=== PATIENT | male | born 1965 | race Caucasian/White ===

== ENCOUNTER → 2020-03-26 | Outpatient (CLI) | payer OTHER ==
--- NOTE | 2020-03-26 13:37 | RADIOLOGY REPORT (SQ) ---
EXAM DESCRIPTION: CT ABD/PELVIS NO ORAL OR IV IMAGES COMPLETED DATE/TIME: 03/26/2020 12:49 pm REASON FOR STUDY: (R31.21)ASYMPTOMATIC MICROSCOPIC HEMATURIA R31.21 ASYMPTOMATIC MICROSCOPIC HEMATU JUNAID COMPARISON: None. TECHNIQUE: CT scan of the abdomen and pelvis performed without intravenous or oral contrast. Images reviewed with lung, soft tissue, and bone windows. Reconstructed coronal and sagittal MPR images revi ewed. All images stored on PACS. All CT scanners at this facility use dose modulation, iterative reconstruction, and/or weight based d osing when appropriate to reduce radiation dose to as low as reasonably achievable (ALARA). [facility]: Dose Right [facility]: CareDose [facility]: Dose Right [facility]: Teradose 4D [facility]: [employer] RADIATION DOSE: CT Rad equipment meets quality standard of care and radiation dose reduction techniq ues were employed. CTDIvol: 14.8 mGy. DLP: 832 mGy-cm.mGy. LIMITATIONS: None. FINDINGS: LOWER CHEST: No significant findings. No nodules or infiltrates. NON-CONTRASTED LIVER, SPLEEN, ADRENALS: Evaluation limited by lack of IV contrast. No identified sign ificant masses. PANCREAS: No masses. No peripancreatic inflammatory changes. GALLBLADDER: No identified stones by CT criteria. No inflammatory changes to suggest cholecystitis. RIGHT KIDNEY AND URETER: No suspicious masses. Assessment limited by lack of IV contrast. No signif icant calcifications. No hydronephrosis or hydroureter. LEFT KIDNEY AND URETER: No suspicious masses. Assessment limited by lack of IV contrast. No signifi cant calcifications. No hydronephrosis or hydroureter. AORTA AND RETROPERITONEUM: There are some small shotty periaortic and mesenteric lymph nodes. Nonspe cific. BOWEL AND PERITONEAL CAVITY: No obvious masses or inflammatory changes. No free fluid. APPENDIX: Normal. PELVIS, BLADDER, AND ABDOMINAL WALL:Urinary bladder is not well filled but otherwise unremarkable. N o pelvic mass or fluid collection. Small uncomplicated inguinal hernias. BONES: No significant findings. OTHER: No other significant finding. IMPRESSION: No acute finding in the abdomen or pelvis. No urinary pathology is appreciated. There are some small shotty nonspecific periaortic and mesenteric lymph nodes. COMMENT: Quality ID # [id number]: Final reports with documentation of one or more dose reduction techniques (e.g., Automated exposure control, adjustment of the mA and/or kV according to patient size, use of iterative reconstruction technique) TECHNICAL DOCUMENTATION: JOB ID: [id number] 2010 [employer]- All Rights Reserved Reading location - IP/workstation name: [email or web address]
--- OUTSIDE RECORDS SUMMARY | 2020-03-27 15:28 | XMS REPORT ---
:1965 Author Organization [facility] [place] [address] [place] [address] Care Team Providers Name Role Phone Marlene Rosario Attending Clinician Unavailable Allergies, Adverse Reactions, Alerts This patient has no known allergies or adverse reactions. Medications This patient has no known medications. Problems This patient has no known problems. Procedures Procedure Date / Time Performed Performing Clinician Devic e OFFICE/OUTPATIENT VISIT EST 2020-03-03 10:00:00 OFFICE/OUTPATIENT VISIT EST 2019-07-17 10:00:00 Results Test Description Test Time Test Comments Text Results Atomic Results Result Comments Hemoglobin A1C\S\ 2020-03-03 10:23:00 Test Item Value Reference Range Comments HgbA1C, Fingerstick (test code = 4548-4) 10.9 % 4-5.6 URINALYSIS, [id number] 00:00:00 Test Item Value Reference Range Comments SQUAMOUS EPITHELIAL CELLS (test code = NONE SEEN /HPF < OR = 5 76921501) APPEARANCE (test code = 32038418) CLEAR CLEAR COLOR (test code = 99311596) YELLOW YELLOW GLUCOSE (test code = 67953756) 3+ NEGATIVE HYALINE CAST (test code = 12588243) NONE SEEN /LPF NONE SEEN BACTERIA (test code = 73843042) NONE SEEN /HPF NONE SEEN OCCULT BLOOD (test code = 66982477) NEGATIVE NEGATIVE LEUKOCYTE ESTERASE (test code = 87390218) NEGATIVE NEGATI VE KETONES (test code = 96010972) TRACE NEGATIVE SPECIFIC GRAVITY (test code = 98378897) 1.040 1.001-1. 035 NITRITE (test code = 83670793) NEGATIVE NEGATIVE WBC (test code = 01670855) NONE SEEN /HPF < OR = 5 BILIRUBIN (test code = 62163427) NEGATIVE NEGATIVE PH (test code = 22186089) 6.0 5.0-8.0 RBC (test code = 73060436) 0-2 /HPF < OR = 2 PROTEIN (test code = 89085-9) 1+ NEGATIVE Rapid Strep\S\2018-10-31 08:00:00 Test Item Value Reference Range Comments Rapid Strep (test code = RAPIDSTREP) Positive N/A Hemoglobin A1C\S\2018-10-31 08:00:00 Test Item Value Reference Range Comments HgbA1C, Fingerstick (test code = 4548-4) 10.6 % 4-5.6 Hemoglobin A1C\S\2018-05-25 15:00:00 Test Item Value Reference Range Comments HgbA1C, Fingerstick (test code = 4548-4) 10.9 % 4-5.6 Assessments Condition Name Status Diagnosis Date Treating Clinici an Asymptomatic microscopic hematuria Active Type 2 diabetes mellitus with hyperglycemia Active Other male erectile dysfunction Active Other abnormal glucose Active Other problems related to housing and Active economic circumstances Encounter for screening for lipoid disorders Active Other male erectile dysfunction Active Type 2 diabetes mellitus with hyperglycemia Active Encounters Start End Encounter Admission Attending Care Care Encounter Date/Time Date/Time Type Type Clinicians Facility Department ID 2020-03-03 2020-03-[address] [facility] [place] DB [id number] 10:00:00 10:00:00 [facility]???s [id number]-8 and [id number] Multispec[facility]ty [id number] Clini 2019-07-17 2019-07-[address] [facility] [place] 84 [id number] 10:00:00 10:00:00 Marlene Children [id number] s [id number] and [id number] [facility], Social History This patient has no known social history. Vital Signs This patient has no known vital signs.
== END ==
LOC: RAD 12:32
PROVIDERS: ATTEND Nurse Practitioner Family
DX: R31.21 Asymptomatic microscopic hematuria (principal); K40.90 Unilateral inguinal hernia, without obstruction or gangrene, not specified as recurrent
CPT/HCPCS: 74176

== ENCOUNTER → 2020-06-12 | Outpatient (CLI) | payer OTHER ==
--- NOTE | 2020-06-12 12:53 | RADIOLOGY REPORT (SQ) ---
EXAM DESCRIPTION: VENOUS UNILATERAL LOWER IMAGES COMPLETED DATE/TIME: 06/12/2020 12:34 pm REASON FOR STUDY: LLE SWELLING M25.472 EFFUSION, LEFT ANKLE COMPARISON: None. TECHNIQUE: Dynamic and static calderon scale and color images acquired of the left leg venous system. Se lected spectral images acquired with additional compression and augmentation maneuvers. The contralat eral common femoral vein and saphenofemoral junction were also imaged. Images stored on PACS. LIMITATIONS: None. FINDINGS: COMMON FEMORAL: Normal phasicity, compression and augmentation. No visualized echogenic ma terial on calderon scale. No defects on color images. FEMORAL: Normal compression and augmentation. No visualized echogenic material on calderon scale. No defe cts on color images. POPLITEAL: Normal compression, augmentation. No visualized echogenic material on calderon scale. No defec ts on color images. CALF VESSELS: Normal compression, augmentation. No visualized echogenic material on calderon scale. No de fects on color images. GSV and SSV: Normal compression, augmentation. No visualized echogenic material on calderon scale. No def ects on color images. ANY DEEP VENOUS INSUFFICIENCY: Not evaluated. ANY EVIDENCE OF POPLITEAL CYST: No. OTHER: No other significant finding. CONTRALATERAL COMMON FEMORAL VEIN AND SAPHENOFEMORAL JUNCTION: Normal phasicity, compression and augmentation. No visualized echogenic material on calderon scale. No de fects on color images. IMPRESSION: NO EVIDENCE DVT OR SVT IN THE LEFT LEG. TECHNICAL DOCUMENTATION: JOB ID: [id number] 2010 [employer]- All Rights Reserved Reading location - IP/workstation name: [email or web address]
--- NOTE | 2020-06-12 15:33 | RADIOLOGY REPORT (SQ) ---
EXAM DESCRIPTION: ANKLE LEFT COMPLETE IMAGES COMPLETED DATE/TIME: 06/12/2020 10:51 am REASON FOR STUDY: (M25.472)EFFUSION, LEFT ANKLE M25.472 EFFUSION, LEFT ANKLE COMPARISON: None. NUMBER OF VIEWS: Three views. TECHNIQUE: AP, lateral, and oblique radiographic images acquired of the left ankle. LIMITATIONS: None. FINDINGS: MINERALIZATION: Normal. BONES: No acute fracture or dislocation. No worrisome bone lesions. JOINTS: Multiple rounded calcific bodies are seen anteromedial to the tibiotalar joint and may be wit hin the joint capsule. A joint effusion appears to be present. SOFT TISSUES: Atherosclerotic vascular calcifications in circumferential edema. OTHER: No other significant finding. IMPRESSION: Multiple rounded calcific bodies seen anteromedial to the tibiotalar joint are nonspecif ic. If intraarticular, differential considerations include synovial chondromatosis/ osteochondromato sis. If extra-articular these may represent dystrophic calcifications in the setting of previous sof t tissue injury. An underlying osseous or soft tissue neoplasm is not excluded. Recommend further e valuation with contrast-enhanced MR imaging of the ankle. TECHNICAL DOCUMENTATION: JOB ID: [id number] [employer]- All Rights Reserved Reading location - IP/workstation name: [email or web address]
== END ==
LOC: SP 09:41
PROVIDERS: ATTEND Nurse Practitioner Family
DX: M25.472 Effusion, left ankle (principal)
CPT/HCPCS: 93971